=== PATIENT | male | born 1955 | race Native Hawaiian/Other Pacific Islander ===

== ENCOUNTER 2017-08-27 10:11 | Day surgery (SDC) | payer OTHER ==
[2017-08-27 10:55] VITALS: BMI 25.0
[2017-08-27] MEDS ORDERED: Lactated Ringer's 1,000 ML IV ONE (12:55)
[2017-08-27] MEDS ORDERED: Propofol 10 mg/ml Inj (20 ML) ONE (12:56)
[2017-08-27 13:54] VITALS: TEMP 98.4
[2017-08-27 14:24] VITALS: BP 130/75; PULSE 78; RESP 15; O2SAT 98
== END 2017-08-27 15:09 | disposition home or self-care (01) ==
LOC: C.ENDO 10:11
PROVIDERS: ATTEND Internal Medicine Gastroenterology
DX: Z12.11 Encounter for screening for malignant neoplasm of colon (principal); R10.13 Epigastric pain; I10 Essential (primary) hypertension; E11.9 Type 2 diabetes mellitus without complications; F32.9 Major depressive disorder, single episode, unspecified; E78.5 Hyperlipidemia, unspecified; Z79.899 Other long term (current) drug therapy; Z79.84 Long term (current) use of oral hypoglycemic drugs; H40.9 Unspecified glaucoma; Z87.891 Personal history of nicotine dependence; K64.1 Second degree hemorrhoids; K57.30 Diverticulosis of large intestine without perforation or abscess without bleeding; K26.9 Duodenal ulcer, unspecified as acute or chronic, without hemorrhage or perforation; K29.50 Unspecified chronic gastritis without bleeding; K29.80 Duodenitis without bleeding; D12.3 Benign neoplasm of transverse colon
CPT/HCPCS: 43239; 45380; 45385; 82948; 88305; 88313; 88342; J2704; J7120

== ENCOUNTER 2018-05-12 06:58 | Day surgery (SDC) | payer OTHER ==
[2018-05-10 11:33] VITALS: BMI 24.3
--- NOTE | 2018-05-12 08:56 | CP.SDSHP ---
Same Day Surgery H & P - History Proposed Procedure: colonoscopy Pre-Op Diagnosis: screening - Previous Medical/Surgical History Cardiac: Hypertension Endocrine/Metabolic: Diabetes - Allergies Allergies: Allergies aspirin Allergy (Intermediate, Verified 05/10/18 11:32) CONGESTION - Physical Exam General Appearance: NAD Vital Signs: Vital Signs 05/12/18 07:18 Temperature 98 F Pulse Rate 73 Respiratory 19 Rate Blood Pressure 133/77 O2 Sat by Pulse 100 Oximetry Mental Status: Alert & Oriented x3 Neuro: WNL Heart: WNL Lungs: WNL GI: WNL - {Optional Preform as Required} Abdomen: WNL - Impression Pt. Evaluated Today:Candidate for Anesthesia & Procedure: Yes - Date & Time Date: 05/12/18 Time: 08:56 Short Stay Discharge - Short Stay Discharge Admitting Diagnosis/Reason for Visit: ENCOUNTER FOR SCREENING FOR MALIGNANT NEOPLASM OF Disposition: HOME/ ROUTINE
[2018-05-12] MEDS ORDERED: Propofol 10 mg/ml Inj (20 ML) ONE ×2 (09:01→09:30)
[2018-05-12 09:42] VITALS: TEMP 97.1
[2018-05-12 10:56] VITALS: BP 130/78; PULSE 72; RESP 14; O2SAT 97
== END 2018-05-12 10:55 | disposition home or self-care (01) ==
LOC: C.ENDO 06:58
PROVIDERS: ATTEND Internal Medicine Gastroenterology
DX: Z12.11 Encounter for screening for malignant neoplasm of colon (principal); K63.5 Polyp of colon; D12.2 Benign neoplasm of ascending colon; D12.4 Benign neoplasm of descending colon; D12.5 Benign neoplasm of sigmoid colon; D12.3 Benign neoplasm of transverse colon; K64.8 Other hemorrhoids
CPT/HCPCS: 45380; 45385; 82948; 88305; J2704

== ENCOUNTER 2018-12-26 07:58 | Outpatient (CLI) | payer OTHER | END 2018-12-26 07:59 | disposition home or self-care (01) | LOC: C.LAB 07:58 | DX: Z00.00 Encounter for general adult medical examination without abnormal findings (principal) ==

== ENCOUNTER 2018-12-26 07:59 | Outpatient (CLI) | payer OTHER | END 2018-12-26 08:00 | disposition home or self-care (01) | LOC: C.LAB 07:59 | DX: E29.1 Testicular hypofunction (principal) ==

== ENCOUNTER 2018-12-30 13:45 | Outpatient (CLI) | payer OTHER | END 2018-12-30 13:46 | disposition home or self-care (01) | LOC: C.CTH 13:45 ==

== ENCOUNTER 2018-12-30 16:14 | Emergency (ER) | payer OTHER ==
[2018-12-30 16:15] VITALS: BMI 24.3
[2018-12-30 16:24] VITALS: RESP 20
--- NOTE | 2018-12-30 16:56 | C.PDOC ---
History Of Present Illness PGY-[address] Hanna Patient is 63 year old male with pmhx of Multiple sclerosis, comes to ED after receiving a call from PMD Dr Barber for abnormal CT Patient complains of burning abdominal pain on right side that is on and off in the past 2-3 years, had GI work up in the past with negative findings, pain has been worsening in the past 2 weeks, experiencing fever for the past 3 days and bloating on right side of abdomen. Admits to chronic constipation. Has taken tylenol this am for subjective fevers. Patient denies chest pain, sob, n/v/d. Time Seen by Provider: 12/30/18 16:23 Chief Complaint (Nursing): Abdominal Pain History Per: Patient, Family History/Exam Limitations: no limitations Onset/Duration Of Symptoms: Days, Intermittent Episodes, Worse Since (2 weeks ago) Current Symptoms Are (Timing): Still Present Location Of Pain/Discomfort: RUQ, RLQ Radiation Of Pain To:: None Quality Of Discomfort: Burning Associated Symptoms: Fever, Constipation. denies: Chills, Nausea, Vomiting, Diarrhea, Back Pain, Chest Pain, Urinary Symptoms Last Bowel Movement: Today Past Medical History Vital Signs: Last Vital Signs Temp 99.6 F 12/30/18 16:20 Pulse 93 H 12/30/18 16:20 Resp 20 12/30/18 16:20 BP 122/79 12/30/18 16:20 Pulse Ox 96 12/30/18 16:20 Primary Care Provider: Roly Barber - Medical History PMH: Anxiety, Depression, HTN, Hypercholesterolemia, Multiple Sclerosis, Chronic Kidney Disease Denies: Fractures Surgical History: Endoscopy Family History: States: No Known Family Hx - Social History Hx Tobacco Use: No Hx Alcohol Use: Yes (socially ) Hx Substance Use: No Review Of Systems Constitutional: Positive for: Fever. Negative for: Chills Respiratory: Negative for: Shortness of Breath Gastrointestinal: Positive for: Abdominal Pain (RUQ and RLQ ), Constipation. Negative for: Nausea, Vomiting, Diarrhea, Melena, Hematochezia, Hematemesis Genitourinary: Negative for: Dysuria, Frequency Skin: Negative for: Rash Neurological: Negative for: Weakness, Numbness Physical Exam - Physical Exam Appears: Non-toxic, No Acute Distress Skin: Normal Color, Warm Head: Atraumatic, Normacephalic Eye(s): bilateral: Normal Inspection Oral Mucosa: Moist Cardiovascular: Rhythm Regular, Murmur (mitral) Respiratory: Normal Breath Sounds, No Rales, No Rhonchi, No Wheezing Gastrointestinal/Abdominal: Bowel Sounds, Soft, No Tenderness, No Mass, Distention (right abdomen distention), No Guarding Back: Normal Inspection Extremity: Normal ROM Neurological/Psych: Oriented x3, Normal Speech, Normal Cognition, Normal Cranial Nerves, Normal Sensation, Normal Reflexes ED Course And Treatment - Laboratory Results Result Diagrams: 12/30/18 17:00 12/30/18 17:00 O2 Sat by Pulse Oximetry: 96 Medical Decision Making Medical Decision Making: Lab work done on tuesday 12/[address] with no abnormal results CT abdomen with PO and IV contrast shows acute diverticulitis distal left colon, wall thickening urinary bladder WIll order CBC, CMP blood work within normal limits, no leukocytosis afebrile, heart rate within normal limits Patient drinking well, in no acute distress after re assessment Augmentin x1 PO and tylenol x1 Patient stable for d/c, will provide script for oral abx for 10 days, patient to follow up with PMD, patient to return to ER if symptoms worsen or return . Plan d/w Dr Jacques Pitt, PGY-1 Disposition - Disposition Referrals: Roly Barber MD [Staff Provider] - Disposition: HOME/ ROUTINE Disposition Time: 17:55 Condition: STABLE Additional Instructions: PAtient to take augmentin 1 tablet per mouth twice a day for 10 days, patient can start medication tomorrow as you received one dose tonight at the ED Patient to have a clear liquid diet fo 3-5 days Please follow up with PMD in 1-2 days Please, return to the Emergency Department if your symptoms worsen, do not improve, or if you have any other problems. Prescriptions: Amoxicillin/Clavulanate [Augmentin 875 MG-125 MG] 1 tab PO BID 10 Days #20 tab Instructions: Clear Liquid Diet, Diverticulitis (DC) Forms: [employer] ([employer]) - Clinical Impression Clinical Impression: Diverticulitis
[2018-12-30 17:04] LABS: BASO % 0.7 % (0.0-2.0); EOS # 0.2 K/uL (0.0-0.7); EOS % 5.3 % (0.0-4.0); HEMOGLOBIN 11.4 g/dL (12.0-18.0); LYMPH # 0.4 K/uL (1.0-4.3); LYMPH % 8.2 % (20.0-40.0); MEAN CELL VOLUME 79.3 fL (80.0-94.0); MEAN CORPUSCULAR HEMOGLOBIN 25.8 pg (27.0-31.0); MEAN CORPUSCULAR HGB CONC 32.5 g/dL (33.0-37.0); MEAN PLATELET VOLUME 8.6 fL (7.2-11.7); MONO # 0.6 K/uL (0.0-0.8); MONO % 12.9 % (0.0-10.0); NEUT # 3.3 K/uL (1.8-7.0); NEUT % 72.9 % (50.0-75.0); NRBC % 0.1 % (0.0-2.0); PLATELET COUNT 199 K/uL (130-400); RBC 4.44 Mil/uL (4.40-5.90); RED CELL DISTRIBUTION WIDTH 13.8 % (11.5-14.5); WHITE BLOOD COUNT 4.5 K/uL (4.8-10.8)
[2018-12-30 17:36] LABS: ALB/GLOB RATIO 1.5 (1.0-2.1); ALBUMIN 4.3 g/dL (3.5-5.0); ALT/SGPT 36 U/L (21-72); AST/SGOT 30 U/L (17-59); BLOOD UREA NITROGEN 6 mg/dL (9-20); CALCIUM 9.2 mg/dl (8.6-10.4); GFR NON-AFRICAN AMERICAN > 60
[2018-12-30] MEDS ORDERED: Amoxicillin-Clav 875-125 mg Tab PO STA (17:52)
[2018-12-30 17:54] LABS: EOSINOPHIL 8 % (0-4); LYMPHOCYTE 7 % (20-40); MONOCYTE 12 % (0-10); NEUTROPHIL 73 % (50-75); PLATELET ESTIMATE NORMAL (NORMAL); TOTAL CELLS COUNTED 100
[2018-12-30] MEDS ORDERED: Amoxicillin-Clav 875-125 mg Tab PO ONE (18:15)
[2018-12-30 18:31] VITALS: BP 119/75; PULSE 85; TEMP 100.2
[2018-12-30 20:24] VITALS: O2SAT 96
== END 2018-12-30 18:31 | disposition home or self-care (01) ==
LOC: C.ER 16:14
DX: K57.92 Diverticulitis of intestine, part unspecified, without perforation or abscess without bleeding (principal); I12.9 Hypertensive chronic kidney disease with stage 1 through stage 4 chronic kidney disease, or unspecified chronic kidney disease; N18.9 Chronic kidney disease, unspecified; G35 Multiple sclerosis; E78.00 Pure hypercholesterolemia, unspecified; Z87.891 Personal history of nicotine dependence